=== PATIENT | female | born 1965 | race Caucasian/White ===

== ENCOUNTER 2019-04-19 15:18 | Emergency (ER) | payer BC, OTHER ==
[~2019-04-19] VITALS: Ht 167.6 cm; Wt 86.2 kg
[~2019-04-19 15:18] MED LIST: LABETALOL HCL200 MG PO; NORCO 5-325 TA1 EACH PO
[2019-04-19 16:30] LABS: BASOPHILS % 0.4 % (0.0-1.0); EOSINOPHILS # (AUTO) 0.1 (0.0-0.4); EOSINOPHILS % 1.6 % (0.0-6.0); HEMATOCRIT 40.3 % (34.2-44.1); HEMOGLOBIN 13.2 g/dL (12.0-16.0); LYMPHOCYTES # (AUTO) 2.2 (1.0-3.2); LYMPHOCYTES % 24.9 % (18.0-39.1); MEAN CORPUSCULAR HEMOGLOBIN 26.3 pg (28-32); MEAN CORPUSCULAR HGB CONC 32.8 g/dL (31-35); MEAN CORPUSCULAR VOLUME 80.4 fL (81-99); MONOCYTES # (AUTO) 0.8 (0.2-0.8); NEUTROPHILS # (AUTO) 5.7 (2.1-6.9); NEUTROPHILS % 63.9 % (38.7-80.0); PLATELET COUNT 324 x10e3/uL (140-360); RED BLOOD COUNT 5.01 x10e6/uL (3.6-5.1); RED CELL DISTRIBUTION WIDTH 13.2 % (11.7-14.4)
[2019-04-19 16:45] LABS: BILIRUBIN,URINE NEGATIVE (NEGATIVE)
[2019-04-19 16:46] LABS: CLARITY,URINE SL CLOUDY (CLEAR); COLOR,URINE YELLOW (YELLOW); KETONES,URINE NEGATIVE (NEGATIVE); LEUKOCYTE ESTERASE ,URINE TRACE (NEGATIVE)
--- NOTE | 2019-04-19 16:46 | Diagnostic Imaging Report ---
EXAM: Right upper quadrant abdominal ultrasound INDICATION: Right upper quadrant pain COMPARISON: Right upper quadrant ultrasound of 06/12/2007 TECHNIQUE: Transverse and longitudinal images of the right upper quadrant abdomen were obtained FINDINGS: Liver: Size: 14.9 cm in the right midclavicular line, normal Appearance: Increased echogenicity, smooth contour Mass: No focal masses Gallbladder: No gallbladder distension, pericholecystic fluid, wall thickening, stone, or reported sonographic Camarena's sign. Gallbladder wall measures 3 mm. Bile Ducts: Intrahepatic Ducts: No dilatation Extrahepatic Ducts: Common bile duct measures 3 mm. Pancreas: Visualized portions of the pancreatic head, neck and proximal body are normal. Kidney: The right kidney measures 10.4 cm without evidence of hydronephrosis or stone. Vessels: Aorta: Visualized portions are normal Inferior Vena Cava: Visualized portions are normal Main Portal Vein: 1.4 cm, normal size with hepatopetal flow. Free Fluid: No ascites or pleural effusion IMPRESSION: No cholelithiasis or sonographic evidence of cholecystitis. Hepatic steatosis Signed by: Coretta Harris MD on 04/19/2019 4:43 PM
[2019-04-19 16:47] LABS: NITRITE,URINE NEGATIVE (NEGATIVE); PREGNANCY TEST, URINE NEGATIVE (NEGATIVE); PROTEIN,URINE DIPSTICK NEGATIVE (NEGATIVE); URINE UROBILINOGEN 0.2 mg/dL (0.2 - 1)
[2019-04-19 16:50] LABS: ALANINE AMINOTRANSFERASE 34 IU/L (0-55); ALBUMIN 3.8 g/dL (3.5-5.0); ALBUMIN/GLOBULIN RATIO 1.1 (0.8-2.0); ALKALINE PHOSPHATASE 90 IU/L (40-150); ANION GAP 14.8 mmol/L (8-16); BLOOD UREA NITROGEN 11 mg/dL (7-26); BUN/CREATININE RATIO 14 (6-25); CALCIUM 9.5 mg/dL (8.4-10.2); CARBON DIOXIDE 22 mmol/L (22-29); CHLORIDE 106 mmol/L (98-107); CREATININE, SERUM 0.79 mg/dL (0.57-1.11); EST GLOMERULAR FILTRATION RATE > 60 ML/MIN (60-); GLUCOSE 86 mg/dL (74-118); POTASSIUM 3.8 mmol/L (3.5-5.1); SODIUM 139 mmol/L (136-145)
[2019-04-19 17:01] LABS: BACTERIA,URINE MODERATE /HPF; CALCIUM OXALATE CRYSTALS,UR MODERATE (FEW); EPITHELIAL CELLS,URINE MODERATE /LPF
[2019-04-19] MEDS ORDERED: DICYCLOMINE HCL 20 MG/2 ML VIAL IM ONE (18:30)
[2019-04-19] MEDS ORDERED: KETOROLAC TROMETHAMINE 30 MG/ML VIAL IV ONE (18:30)
--- NOTE | 2019-04-19 19:28 | Diagnostic Imaging Report ---
EXAM: CT Abdomen and Pelvis WITHOUT contrast INDICATION: ^Right Flank pain, evaluate for kidney stone ^[id number] ^[id number] COMPARISON: CT abdomen/pelvis, 07/26/2014; gallbladder ultrasound, 04/19/2019 TECHNIQUE: Abdomen and pelvis were scanned utilizing a multidetector helical scanner from the lung base to the pubic symphysis without administration of IV contrast. Absence of intravenous contrast decreases sensitivity for detection of focal lesions and vascular pathology. Coronal and sagittal reformations were obtained. Renal stone protocol was performed. Dose modulation, iterative reconstruction, and/or weight based adjustment of the mA/kV was utilized to reduce the radiation dose to as low as reasonably achievable. IV CONTRAST: None. ORAL CONTRAST: None RADIATION DOSE: Total DLP: 715.92 mGy*cm Estimated effective dose: (DLP x 0.015 x size factor) mSv COMPLICATIONS: None FINDINGS: LINES and TUBES: None. LOWER THORAX: Lung bases are clear. There are small calcified granulomata in both lower lobes. Heart size normal with trace pericardial effusion. HEPATOBILIARY: The liver is diffusely low density relative to spleen compatible with steatosis. No focal hepatic lesions. No biliary ductal dilation. GALLBLADDER: No radio-opaque stones or sludge. No wall thickening. SPLEEN: No splenomegaly. PANCREAS: No focal masses or ductal dilatation. ADRENALS: No adrenal nodules KIDNEYS/URETERS: No hydronephrosis. No cystic or solid mass lesions. No stones. GI TRACT: No abnormal distention, wall thickening, or evidence of bowel obstruction. Appendix is normal. PELVIC ORGANS/BLADDER: Urinary bladder is unremarkable with no wall thickening. The uterus is anteverted. No discrete abnormal mass or fluid collection in the pelvis. LYMPH NODES: No dominant lymph node mass seen in the abdomen, pelvis or retroperitoneum. VESSELS: The distal descending thoracic aorta is aneurysmal measuring 4.3 cm (measurements on the previous exam suggested an overall diameter of approximately 3.8 cm). Correlation with the report of the previous exam is recommended. There is no evidence for aneurysm of the abdominal aorta. Scattered calcified plaques are seen. Previous CT appear to show aortic dissection although report from the previous exam is unavailable for review. This is suggested but not well evaluated on the current noncontrast examination. PERITONEUM / RETROPERITONEUM: No pneumoperitoneum or ascites. BONES: No acute or suspicious bony lesions. SOFT TISSUES: Superficial surrounding soft tissue unremarkable. IMPRESSION: 1. No urinary tract calculus or hydronephrosis. 2. Again noted is 4.3 cm aneurysm of the distal thoracic aorta extending to the upper abdominal aorta. Overall dimension appears slightly greater than on the previous exam. The known previously demonstrated aortic dissection is not well characterized on the current exam. Staff: Tj Signed by: Dr. Kun Spencer M.D. on 04/19/2019 7:24 PM
[2019-04-19 20:32] VITALS: BP 158/86
--- OUTSIDE RECORDS SUMMARY | 2019-04-23 12:54 | XMS REPORT ---
Author Author [facility] Address Unknown Phone Unavailable Care Team Providers Care Inbound Customer Service Representative Name Role Phone Rolando HARMAN Unavailable Unavailable Problems This patient has no known problems. Allergies, Adverse Reactions, Alerts This patient has no known allergies or adverse reactions. Medications This patient has no known medications. Results Test Description Test Time Test Comments Text Results Atomic Results Result Comments CT ABDOMEN/PELVIS WO 2019-04-19 19:09:00 [place] [address] Patient Name: NICOLASA AMIN MR #: [id number] : 1965 Age/Sex: 53/F Req #: [id number] [facility] Physician: Ordered by: COLE HARMAN MD Report #: [id number] Location: ER Room/Bed: Procedure: [id number] CT/CT ABDOMEN/PELVIS WO Exam Date: 04/19/19 Exam Time: 1800 REPORT STATUS: Signed EXAM: CT Abdomen and Pelvis WITHOUT contrast INDIC ATION: Right Flank pain, evaluate for kidney stone [id number] COMPARISON: CT abdomen/pelvis, 07/26/2014; gallbladder ultrasound, 04/19/2019 TECHNIQUE: Abdomen and pelvis were scanned utilizing a multidetector helical scanner from the lung base to the pubic symphysis without administration of IV contrast. Absence of intravenous contrast decreases sensitivity for detection of focal lesions and vascular pathology. Coronal and sagittal reformations were obtained. Renal stone protocol was performed. Dose modulation, iterative reconstruction, and/or weight based adjustment of the mA/kV was utilized to reduce the radiation dose to as low as reasonably achievable. IV CONTRAST: None. ORAL CONTRAST: None RADIATION DOSE: Total DLP: 715.92 mGy*cm Estimated effective dose: (DLP x 0.015 x size factor) mSv COMPLICATIONS: None FINDINGS: LINES and TUBES: None. LOWER THORAX: Lung bases are clear. There are small calcified granulomata in both lower lobes. Heart size normal with trace pericardial effusion. HEPATOBILIARY: The liver is diffusely low density relative to spleen compatible with steatosis. No focal hepatic lesions. No biliary ductal dilation. GALLBLADDER: No radio-opaque stones or sludge. No wall thickening. SPLEEN: No splenomegaly. PANCREAS: No focal masses or ductal dilatation. ADRENALS: No adrenal nodules KIDNEYS/URETERS: No hydronephrosis. No cystic or solid mass lesions. No stones. GI TRACT: No abnormal distention, wall thickening, or evidence of bowel obstruction. Appendix is normal. PELVIC ORGANS/BLADDER: Urinary bladder is unremarkable with no wall thickening. The uterus is anteverted. No discrete abnormal mass or fluid collection in the pelvis. LYMPH NODES: No dominant lymph node mass seen in the abdomen, pelvis or retroperitoneum. VESSELS: The distal descending thoracic aorta is aneurysmal measuring 4.3 cm (measurements on the previous exam suggested an overall diameter of approximately 3.8 cm). Correlation with the report of the previous exam is recommended. There is no evidence for aneurysm of the abdominal aorta. Scattered calcified plaques are seen. Previous CT appear to show aortic dissection although report from the previous exam is unavailable for review. This is suggested but not well evaluated on the current noncontrast examination. PERITONEUM / RETROPERITONEUM: No pneumoperitoneum or ascites. BONES: No acute or suspicious bony lesions. SOFT TISSUES: Superficial surrounding soft tissue unremarkable. IMPRESSION: 1. No urinary tract calculus or hydronephrosis. 2. Again noted is 4.3 cm aneurysm of the distal thoracic aorta extending to the upper abdominal aorta. Overall dimension appears slightly greater than on the previous exam. The known previously demonstrated aortic dissection is not well characterized on the current exam. Staff: Tj Signed by: Dr. Shania Lopez M.D. on 04/19/2019 7:24 PM Dictated By: SHANIA LOPEZ MD 23 Transcribed By: ESTRELLA on 04/19/191923 COPY TO: COLE HARMAN MD US GALLBLADDER 2019-04-19 16:42:00 [place] [address] Patient Name: NICOLASA AMIN MR #: [id number] : 1965 Age/Sex: 53/F Req #: [id number] Adm Physician: Ordered by: COLE HARMAN MD Report #: [id number] Location: ER Room/Bed: Procedure: [id number] US/US GALLBLADDER Exam Date: Exam Time: REPORT STATUS: Signed EXAM: Right upper quadrant abdominal ultrasound INDICATION: Right upper quadrant pain COMPARISON: Right upper quadrant ultrasound of 06/12/2007 TECHNIQUE: Transverse and longitudinal images of the right upper quadrant abdomen were obtained FINDINGS: Liver: Size: 14.9 cm in the right midclavicular line, normal Appearance: Increased echogenicity, smooth contour Mass: No focal masses Gallbladder: No gallbladder distension, pericholecystic fluid, wall thickening, stone, or reported sonographic Camarena's sign. Gallbladder wall measures 3 mm. Bile Ducts: Intrahepatic Ducts: No dilatation Extrahepatic Ducts: Common bile duct measures 3 mm. Pancreas: Visualized portions of the pancreatic head, neck and proximal body are normal. Kidney: The right kidney measures 10.4 cm without evidence of hydronephrosis or stone. Vessels: Aorta: Visualized portions are normal Inferior Vena Cava: Visualized portions are normal Main Portal Vein: 1.4 cm, normal size with hepatopetal flow. Free Fluid: No ascites or pl eural effusion IMPRESSION: No cholelithiasis or sonographic evidence of cholecystitis. Hepatic steatosis Signed by: Lesa Payne MD on 04/19/2019 4:43 PM Dictated By: LESA PAYNE MD 164 Transcribed By: ESTRELLA on 04/19/191642 COPY TO: COLE HARMAN MD
== END 2019-04-19 20:30 | disposition home or self-care (01) ==
LOC: ER 15:18
DX: R10.11 Right upper quadrant pain (principal); I71.2 Thoracic aortic aneurysm, without rupture
CPT/HCPCS: 36415; 74176; 76705; 80053; 81001; 81025; 85025; 93005; 99284; J0500; J1885